=== PATIENT | female | born 1945 | race Caucasian/White ===

== ENCOUNTER → 2019-07-08 | Outpatient (CLI) | payer MEDICARE | END | disposition home or self-care (01) | LOC: OIH 12:59 | PROVIDERS: ATTEND Internal Medicine | DX: M19.041 Primary osteoarthritis, right hand (principal); M19.042 Primary osteoarthritis, left hand; M25.741 Osteophyte, right hand; M25.742 Osteophyte, left hand; M11.20 Other chondrocalcinosis, unspecified site | CPT/HCPCS: 73120 ==